=== PATIENT | female | born 1955 | race Two or more races ===

== ENCOUNTER → 2016-12-15 | Outpatient (CLI) | payer MEDICARE, MEDICAID | LOC: WI 09:00 | PROVIDERS: ATTEND Physician Assistant | DX: Z12.31 Encounter for screening mammogram for malignant neoplasm of breast (principal) | CPT/HCPCS: 77067; G0202 ==

== ENCOUNTER 2017-01-06 10:49 | Inpatient (IN) | payer MEDICARE, MEDICAID ==
[2017-01-06] MEDS ORDERED: MECLIZINE HCL 25 MG TABLET PO ONE (11:25)
[2017-01-06] MEDS ORDERED: NORMAL SALINE 1000 ML 1,000 ML IV ONE (11:39)
[2017-01-06 13:24] LABS: ABSOLUTE BASOPHILS # (AUTO) 0.1 10^3/uL (0.0-0.2); ABSOLUTE EOSINOPHILS # (AUTO) 0.1 10^3/uL (0.0-0.6); ABSOLUTE LYMPHOCYTES (AUTO) 1.6 10^3/uL (0.5-4.7); ABSOLUTE MONOCYTES (AUTO) 0.5 10^3/uL (0.1-1.4); ABSOLUTE NEUT (AUTO) 6.9 10^3/uL (1.7-8.2); BASOPHILS % (AUTO) 0.6 % (0-2); EOSINOPHILS % (AUTO) 1.3 % (0-6); HEMATOCRIT 39.2 % (36.0-47.0); HEMOGLOBIN 13.1 g/dL (12.0-15.5); HGB HCT DIFFERENCE 0.1; LYMPHOCYTES % (AUTO) 17.4 % (13-45); MEAN CORPUSCULAR HEMOGLOBIN 28.2 pg (27.0-33.4); MEAN CORPUSCULAR HGB CONC 33.5 g/dL (32.0-36.0); MEAN CORPUSCULAR VOLUME 84 fl (80-97); MONOCYTES % (AUTO) 5.5 % (3-13); RED BLOOD COUNT 4.66 10^6/uL (3.72-5.28); RED CELL DISTRIBUTION WIDTH 15.1 % (11.5-14.0); SEGMENTED NEUTROPHILS % (AUTO) 75.2 % (42-78); WHITE BLOOD COUNT 9.2 10^3/uL (4.0-10.5)
[2017-01-06 13:43] LABS: ALANINE AMINOTRANSFERASE 36 U/L (9-52); ALBUMIN 4.3 g/dL (3.5-5.0); ALKALINE PHOSPHATASE 106 U/L (38-126); ANION GAP 12 (5-19); ASPARTATE AMINO TRANSFERASE 31 U/L (14-36); BILIRUBIN,DIRECT 0.2 mg/dL (0.0-0.4); BILIRUBIN,TOTAL 0.5 mg/dL (0.2-1.3); BLOOD UREA NITROGEN 13 mg/dL (7-20); CALCIUM 9.7 mg/dL (8.4-10.2); CARBON DIOXIDE 27 mmol/L (22-30); CHLORIDE 104 mmol/L (98-107); CREATINE KINASE 77 U/L (30-135); CREATININE RESULT 0.59 mg/dL (0.52-1.25); GLUCOSE 108 mg/dL (75-110); LIPASE 80.8 U/L (23-300); MAGNESIUM 2.1 mg/dL (1.6-2.3); POTASSIUM 4.3 mmol/L (3.6-5.0); SODIUM 142.9 mmol/L (137-145); TOTAL PROTEIN 7.7 g/dL (6.3-8.2)
[2017-01-06 13:55] LABS: CREATINE KINASE MB 0.54 ng/mL (<4.55)
[2017-01-06 13:56] LABS: TROPONIN I < 0.012 ng/mL
--- NOTE | 2017-01-06 14:53 | ER Document Report ---
ED General - General Chief Complaint: Syncope Stated Complaint: DIZZINESS,HEADACHE TRAVEL OUTSIDE OF THE [place] IN LAST 30 DAYS: No - HPI Patient complains to provider of: dizziness syncope chest pain Notes: Patient states day prior to arrival started having lightheadedness and dizziness. Patient states also is having some left-sided chest pain pressure. Patient states symptoms continue until this morning when patient awoke and stood up and had a syncopal episode states she passed out for unknown period of time unwitnessed patient states he continues to have very severe lightheadedness and dizziness. Patient states this is now similar to any of the other episodes where she has been admitted to the ER here in the past. Denies any recent changes to her medication denies any head trauma suffered syncope today. Denies any recent travel or antibiotics. Upon my evaluation patient is in no obvious distress - Related Data Allergies/Adverse Reactions: azithromycin [Azithromycin] Adverse Reaction (Severe, Verified 08/17/16 12:09) dizzy, chest pain citalopram hydrobromide [From Celexa] Adverse Reaction (Intermediate, Verified 08/17/16 12:09) Nausea diazepam [From Valium] Adverse Reaction (Intermediate, Verified 08/17/16 12:09) Hyperactivity, anxious Home Medications: Current Home Medications Atorvastatin Calcium [Lipitor 40 mg Tablet] 40 mg PO DAILY 01/06/17 [History] Ipratropium/Albuterol Sulfate [Duoneb 3 ml Ampul] 3 ml NEB PRN PRN 01/06/17 [ History] Lisinopril [Prinivil] 20 mg PO DAILY 01/06/17 [History] Omeprazole 40 mg PO DAILY 01/06/17 [History] Past Medical History - Social History Smoking Status: Unknown if Ever Smoked Family History: Arthritis, Hyperlipidemia, Malignancy - Past Medical History Cardiac Medical History: Reports: Hx Coronary Artery Disease, Hx Hypercholesterolemia, Hx Hypertension Denies: Hx Heart Attack - SUPPOSE TO HAVE STRESS TEST SOMETIME SOON Pulmonary Medical History: Reports: Hx Asthma - at home inhalers and nebulizer, Hx Pneumonia Denies: Hx Bronchitis, Hx COPD, Hx Tuberculosis Neurological Medical History: Reports: Hx Cerebrovascular Accident - TIA in 2007. Denies: Hx Seizures GI Medical History: Reports: Hx Gastroesophageal Reflux Disease, Hx Colonoscopy , Hx Endoscopy. Denies: Hx Hepatitis, Hx Hiatal Hernia, Hx Ulcer Musculoskeltal Medical History: Reports Hx Arthritis, Reports Hx Fibromyalgia, Reports Hx Musculoskeletal Deformity, Reports Hx Musculoskeletal Trauma - Skull bone thumb Skin Medical History: Denies Hx MRSA Psychiatric Medical History: Reports: Hx Anxiety, Hx Depression, Hx Post Traumatic Stress Disorder Traumatic Medical History: Reports: Hx Fractures Infectious Medical History: Denies: Hx Hepatitis Past Surgical History: Reports: Hx Cardiac Catheterization, Hx Section - x4, Hx Cholecystectomy, Hx Hysterectomy, Hx Umbilical Hernia. Denies: Hx Mastectomy, Hx Open Heart Surgery, Hx Pacemaker - Immunizations Hx Diphtheria, Pertussis, Tetanus Vaccination: No Hx Pneumococcal Vaccination: 03/02/14 Review of Systems - Review of Systems Constitutional: No symptoms reported EENT: No symptoms reported Cardiovascular: Dizziness - Syncope, Other Respiratory: No symptoms reported Gastrointestinal: No symptoms reported Genitourinary: No symptoms reported Female Genitourinary: No symptoms reported Musculoskeletal: No symptoms reported Skin: No symptoms reported Hematologic/Lymphatic: No symptoms reported Neurological/Psychological: No symptoms reported -: Yes All other systems reviewed and negative Physical Exam - Vital signs Vitals: Pulse BP 69 128/62 H 01/06/17 13:22 01/06/17 13:22 Interpretation: Normal - General General appearance: Appears well, Alert - HEENT Head: Normocephalic, Atraumatic Eyes: Normal Pupils: PERRL - Respiratory Respiratory status: No respiratory distress Chest status: Nontender Breath sounds: Normal Chest palpation: Normal - Cardiovascular Rhythm: Regular Heart sounds: Normal auscultation Murmur: No - Abdominal Inspection: Normal, Obese Distension: No distension Bowel sounds: Normal Tenderness: Nontender Organomegaly: No organomegaly - Back Back: Normal, Nontender - Extremities General upper extremity: Normal inspection, Nontender, Normal color, Normal ROM , Normal temperature General lower extremity: Normal inspection, Nontender, Normal color, Normal ROM , Normal temperature, Normal weight bearing. No: Jay's sign - Neurological Neuro grossly intact: Yes Cognition: Normal Orientation: AAOx4 [place] Coma Scale Eye Opening: Spontaneous [place] Coma Scale Verbal: Oriented [place] Coma Scale Motor: Obeys Commands [place] Coma Scale Total: 15 Speech: Normal Motor strength normal: LUE, RUE, LLE, RLE Sensory: Normal - Psychological Associated symptoms: Normal affect, Normal mood - Skin Skin Temperature: Warm Skin Moisture: Dry Skin Color: Normal Course - Re-evaluation Re-evalutation: 01/06/17 16:07 Patient's lab work EKG x-rays CT of her head all return negative. Patient was unable to comply with orthostatics as that she stated when standing up she was to lightheaded and dizzy. Otherwise patient's examination reveals no critical etiology. The discussed the hospital is because of the patient's syncopal episode will admit the patient for further monitoring. - Vital Signs Vital signs: Temp Pulse Resp BP Pulse Ox 69 128/62 H 01/06/17 13:22 01/06/17 13:22 - Laboratory Result Diagrams: 01/06/17 13:10 01/06/17 13:10 Laboratory results interpreted by me: 01/06/17 13:10 RDW 15.1 H Discharge - Discharge Clinical Impression: Syncope Qualifiers: Syncope type: unspecified Qualified Code(s): R55 - Syncope and collapse Chest pain Qualifiers: Chest pain type: unspecified Qualified Code(s): R07.9 - Chest pain, unspecified Condition: Good Disposition: ADMITTED OBSERVATION Admitting Provider: [facility] Unit Admitted: Telemetry
[2017-01-06] MEDS ORDERED: ACETAMINOPHEN 325 MG TABLET PO PRN (15:13)
[2017-01-06] MEDS ORDERED: 1/2 NORMAL SALINE 1,000 ML IV PRN (15:13)
--- NOTE | 2017-01-06 16:55 | PDOC H&P ---
History of Present Illness Admission Date/PCP: 01/06/17 15:14 KAREN ALEXANDRE PA-C Patient complains of: Chest pressure and dizziness. History of Present Illness: AYAD SHAY is a 61 year old female with a background history of coronary artery disease, prior myocardial infarction, asthma, possible small stroke in 2007, GERD, and significant anxiety disorder. Yesterday she developed a chest pressure in the left upper part of her chest with possibly some radiation into her arm. It was intense and intermittent. It went away on its own. She did not do anything about it. However she became extremely anxious. She then developed a dizziness as if she might pass out. She went to bed and awoke this morning with an even more violent dizziness. She describes the room wildly spinning. However, she also states that this is a different dizziness from the type that she feels when she might pass out. She believes she passed out either in the bathroom or on the bed. It was not witnessed. She then presented for further evaluation. In the ED, her laboratory work, including troponin, has been unremarkable. Orthostatic blood pressures have been okay. A CT of the head was reported as negative. Now the patient tells me she still has a sense of chest pressure and points to the left upper part of her chest with a single finger. She also demonstrates that she gets a sharper chest pain when she takes a deep breath. She denies fever or chills but does admit to some nausea and diarrhea in the past 24 hours. She will be admitted to telemetry for further evaluation of her symptomatology and treatment as needed. Past Medical History Cardiac Medical History: Reports: Coronary Artery Disease, Hyperlipidema, Hypertension Denies: Myocardial Infarction - SUPPOSE TO HAVE STRESS TEST SOMETIME SOON Pulmonary Medical History: Reports: Asthma - at home inhalers and nebulizer, Pneumonia Denies: Bronchitis, Chronic Obstructive Pulmonary Disease (COPD), Tuberculosis Neurological Medical History: Denies: Seizures GI Medical History: Reports: Gastroesophageal Reflux Disease Denies: Hepatitis, Hiatal Hernia Musculoskeltal Medical History: Reports: Arthritis, Fibromyalgia Psychiatric Medical History: Reports: Depression, Post Traumatic Stress Disorder Hematology: Denies: Anemia, Sickle Cell Disease Past Surgical History Past Surgical History: Reports: Cardiac Catheterization, Section - x4, Cholecystectomy, Hysterectomy Denies: Amputation, Mastectomy, Pacemaker Social History Smoking Status: Unknown if Ever Smoked Frequency of Alcohol Use: None Hx Recreational Drug Use: No Hx Prescription Drug Abuse: No Family History Family History: Arthritis, Hyperlipidemia, Malignancy Parental Family History Reviewed: Yes Children Family History Reviewed: Yes Sibling(s) Family History Reviewed.: Yes Medication/Allergy Home Medications: Atorvastatin Calcium [Lipitor 40 mg Tablet] 40 mg PO DAILY 01/06/17 Ipratropium/Albuterol Sulfate [Duoneb 3 ml Ampul] 3 ml NEB PRN PRN 01/06/17 Lisinopril [Prinivil] 20 mg PO DAILY 01/06/17 Omeprazole 40 mg PO DAILY 01/06/17 Allergies/Adverse Reactions: azithromycin [Azithromycin] Adverse Reaction (Severe, Verified 08/17/16 12:09) dizzy, chest pain citalopram hydrobromide [From Celexa] Adverse Reaction (Intermediate, Verified 08/17/16 12:09) Nausea diazepam [From Valium] Adverse Reaction (Intermediate, Verified 08/17/16 12:09) Hyperactivity, anxious Review of Systems Constitutional: ABSENT: chills, fever(s), headache(s), weight gain, weight loss Eyes: ABSENT: visual disturbances Ears: ABSENT: hearing changes Cardiovascular: PRESENT: as per HPI Respiratory: ABSENT: cough, hemoptysis Gastrointestinal: ABSENT: abdominal pain, constipation, diarrhea, hematemesis, hematochezia, nausea, vomiting Genitourinary: ABSENT: dysuria, hematuria Musculoskeletal: ABSENT: joint swelling Integumentary: ABSENT: rash, wounds Neurological: ABSENT: abnormal gait, abnormal speech, confusion, dizziness, focal weakness, syncope Psychiatric: ABSENT: anxiety, depression, homidical ideation, suicidal ideation Endocrine: ABSENT: cold intolerance, heat intolerance, polydipsia, polyuria Hematologic/Lymphatic: ABSENT: easy bleeding, easy bruising Physical Exam Vital Signs: Temp Pulse Resp BP Pulse Ox 69 128/62 H 01/06/17 13:22 01/06/17 13:22 General appearance: PRESENT: no acute distress, well-developed, well-nourished Head exam: PRESENT: atraumatic, normocephalic Eye exam: PRESENT: conjunctiva pink, EOMI, PERRLA. ABSENT: scleral icterus Ear exam: PRESENT: normal external ear exam Mouth exam: PRESENT: moist, tongue midline Neck exam: ABSENT: carotid bruit, JVD, lymphadenopathy, thyromegaly Respiratory exam: PRESENT: clear to auscultation yvette. ABSENT: rales, rhonchi, wheezes Cardiovascular exam: PRESENT: RRR. ABSENT: diastolic murmur, rubs, systolic murmur Pulses: PRESENT: normal dorsalis pedis pul Vascular exam: PRESENT: normal capillary refill GI/Abdominal exam: PRESENT: normal bowel sounds, soft. ABSENT: distended, guarding, mass, organolmegaly, rebound, tenderness Rectal exam: PRESENT: deferred Extremities exam: PRESENT: full ROM. ABSENT: calf tenderness, clubbing, pedal edema Neurological exam: PRESENT: alert, awake, oriented to person, oriented to place , oriented to time, oriented to situation, CN II-XII grossly intact. ABSENT: motor sensory deficit Psychiatric exam: PRESENT: appropriate affect, normal mood. ABSENT: homicidal ideation, suicidal ideation Skin exam: PRESENT: dry, intact, warm. ABSENT: cyanosis, rash Results Impressions: Chest X-Ray 01/06/17 11:47 IMPRESSION: NO SIGNIFICANT RADIOGRAPHIC FINDING IN THE CHEST. Head CT 01/06/17 11:47 IMPRESSION: NORMAL BRAIN CT WITHOUT CONTRAST. Assessment & Plan - Diagnosis (1) Syncope Qualifiers: Syncope type: unspecified Qualified Code(s): R55 - Syncope and collapse Is this a current diagnosis for this admission?: YesPlan: Will monitor her symptoms, vital signs, labs, and telemetry. (2) Chest pain Qualifiers: Chest pain type: chest pain on breathing Qualified Code(s): R07.1 - Chest pain on breathing Is this a current diagnosis for this admission?: YesPlan: Will check serial cardiac enzymes and ask Cardiology to see. (3) CAD (coronary artery disease), [place] coronary artery Qualifiers: [place] vs. transplanted heart: [place] heart Is this a current diagnosis for this admission?: Yes (4) Anxiety Is this a current diagnosis for this admission?: Yes (5) Asthma Is this a current diagnosis for this admission?: No (6) GERD (gastroesophageal reflux disease) Is this a current diagnosis for this admission?: No (7) Obesity Is this a current diagnosis for this admission?: Yes (8) Hyperlipidemia Is this a current diagnosis for this admission?: No - Time Time Spent: 50 to 70 Minutes Medications reviewed and adjusted accordingly: Yes Anticipated discharge: Home
[2017-01-06] MEDS ORDERED: DIAZEPAM 5 MG TABLET PO PRN (19:01)
[2017-01-06 19:09] LABS: APPEARANCE,URINE CLEAR; BILIRUBIN,URINE NEGATIVE (NEGATIVE); GLUCOSE, URINE NEGATIVE (NEGATIVE); KETONES,URINE NEGATIVE (NEGATIVE); LEUKOCYTE ESTERASE,URINE TRACE (NEGATIVE); NITRITE,URINE NEGATIVE (NEGATIVE); PROTEIN,URINE NEGATIVE (NEGATIVE); UROBILINOGEN,URINE NEGATIVE mg/dL (<2.0)
[2017-01-06 19:26] LABS: URINE BARBITURATES SCREEN NEGATIVE; URINE METHADONE SCREEN NEGATIVE; URINE OPIATES LOW NEGATIVE; URINE PHENCYCLIDINE SCREEN NEGATIVE
--- NOTE | 2017-01-06 19:55 | PDOC CONSULTATION ---
Consultation Consult Date: 01/06/17 Attending physician:: SANDRA BAHENA Consult reason:: Syncope and near syncope and dizziness History of Present Illness Admission Date/PCP: 01/06/17 15:14 KAREN ALEXANDRE PA-C Patient complains of: Severe fatigue, dizziness, near syncope and syncope History of Present Illness: AYAD SHAY is a 61 year old female with a background history of coronary artery disease, prior myocardial infarction, asthma, possible small stroke in 2007, GERD, and significant anxiety disorder. Yesterday she developed a chest pressure in the left upper part of her chest with possibly some radiation into her arm. It was intense and intermittent. It went away on its own. She did not do anything about it. However she became extremely anxious. She then developed a dizziness as if she might pass out. She went to bed and awoke this morning with an even more violent dizziness. She describes the room wildly spinning. However, she also states that this is a different dizziness from the type that she feels when she might pass out. She believes she passed out either in the bathroom or on the bed. It was not witnessed. She then presented for further evaluation. In the ED, her laboratory work, including troponin, has been unremarkable. Orthostatic blood pressures have been okay. A CT of the head was reported as negative. Now the patient tells me she still has a sense of chest pressure and points to the left upper part of her chest with a single finger. She also demonstrates that she gets a sharper chest pain when she takes a deep breath. She denies fever or chills but does admit to some nausea and diarrhea in the past 24 hours. She will be admitted to telemetry for further evaluation of her symptomatology and treatment as needed. Past Medical History Cardiac Medical History: Reports: Coronary Artery Disease, Hyperlipidema, Hypertension Denies: Myocardial Infarction - SUPPOSE TO HAVE STRESS TEST SOMETIME SOON Pulmonary Medical History: Reports: Asthma - at home inhalers and nebulizer, Pneumonia Denies: Bronchitis, Chronic Obstructive Pulmonary Disease (COPD), Tuberculosis Neurological Medical History: Denies: Seizures GI Medical History: Reports: Gastroesophageal Reflux Disease Denies: Hepatitis, Hiatal Hernia Musculoskeltal Medical History: Reports: Arthritis, Fibromyalgia Psychiatric Medical History: Reports: Depression, Post Traumatic Stress Disorder Hematology: Denies: Anemia, Sickle Cell Disease Past Surgical History Past Surgical History: Reports: Cardiac Catheterization, Section - x4, Cholecystectomy, Hysterectomy Denies: Amputation, Mastectomy, Pacemaker Social History Information Source: Patient Smoking Status: Unknown if Ever Smoked Frequency of Alcohol Use: None Hx Recreational Drug Use: No Hx Prescription Drug Abuse: No - Advance Directive Resuscitation Status: Full Code Family History Family History: Arthritis, Hyperlipidemia, Malignancy Parental Family History Reviewed: Yes Children Family History Reviewed: Yes Sibling(s) Family History Reviewed.: Yes - Negative for premature coronary artery disease or sudden cardiac in the family amongst first degree relatives. Medication/Allergy Home Medications: Atorvastatin Calcium [Lipitor 40 mg Tablet] 40 mg PO DAILY 01/06/17 Ipratropium/Albuterol Sulfate [Duoneb 3 ml Ampul] 3 ml NEB PRN PRN 01/06/17 Lisinopril [Prinivil] 20 mg PO DAILY 01/06/17 Omeprazole 40 mg PO DAILY 01/06/17 Meclizine HCl [Antivert 25 mg Tablet] 25 mg PO Q8HP PRN #20 tablet 01/07/17 Metoprolol Succinate [Toprol Xl 25 mg Tab.sr] 25 mg PO DAILY #0 tab.sr.24h 01/07 Allergies/Adverse Reactions: azithromycin [Azithromycin] Adverse Reaction (Severe, Verified 08/17/16 12:09) dizzy, chest pain citalopram hydrobromide [From Celexa] Adverse Reaction (Intermediate, Verified 08/17/16 12:09) Nausea diazepam [From Valium] Adverse Reaction (Intermediate, Verified 08/17/16 12:09) Hyperactivity, anxious Review of Systems Review of Systems: Please see history of present illness and past medical history as wall. Constitutional: No fever or chills reported. Head : No recent chronic headaches, recent head injury. Eyes: No recent eye pain, diplopia, redness, discharge, acute visual changes. Ears: No recent chronic ear pain, acute hearing loss, ear discharge. Oral cavity: No recent ulcerations, bleeding, oral cavity discomfort. Neck: No recent acute neck pain reported. Hematologic: No recent easy bruising or bleeding or hematologic malignancy reported. Lymphatic: No recent lymphatic malignancy, chronic lymphadenopathy reported yet Cardiovascular system review: See history of present illness. Respiratory system review: No recent chronic cough, hemoptysis, blood clots in the lungs reported. Mild Shortness of breath on exertion Gastrointestinal system review: Negative for any recent acute or chronic abdominal pain, hematemesis, melena, recent change in bowel habits. Genitourinary system review: No recent acute or chronic hematuria, flank pain, UTI etc. reported. Skin system review: Negative for any recent abnormal bruising, no rash, no pruritus reported. Neurologic: Prior history of stroke but no seizure disorder. Patient claims dizziness and vertigo. Psychologic: No history of major psychosis or major depression reported. Patient has underlying anxiety disorder. Musculoskeletal: Minor aches and pains reported. No acute joint swelling reported. Endocrine: No recent polyuria, polydipsia, recent heat or cold intolerance. Physical Exam Vital Signs: Temp Pulse Resp BP Pulse Ox 98.0 F 76 18 126/59 H 100 01/06/17 17:44 01/06/17 17:44 01/06/17 17:44 01/06/17 17:44 01/06/17 17:44 Intake & Output 01/05/17 01/06/17 01/07/17 06:59 06:59 06:59 Intake Total 400 Balance 400 Weight 107.8 kg Exam: GENERAL: well-nourished and in no acute distress. Alert and oriented x3 HEAD: Atraumatic, normocephalic. EYES: Pupils equal round and reactive to light, extraocular movements intact, sclera anicteric, conjunctiva are normal. ENT: TMs normal, nares patent, oropharynx clear without exudates. Moist mucous membranes. No oral ulcerations or bleeding gums noted NECK: supple without lymphadenopathy. Trachea is central. No cervical or axillary lymphadenopathy noted. Carotids are 2+, JVD WNL LUNGS: Respiration seems nonlabored, no significant accessory muscle action noted. Breath sounds clear to auscultation bilaterally and equal noted. No wheezes rales or rhonchi noted. No significant dullness noted on percussion. CHEST: Palpation of the chest wall shows no significant chest wall tenderness. No other significant abnormalities noted. HEART: [employer], No PSH, 1/6 TAMICA aortic area, 1/6 ramirez systolic murmur mitral area, no rubs, no gallops. ABDOMEN: Soft, no significant tenderness appreciated, normoactive bowel sounds. No guarding, no rebound. No rigidity noted . No masses appreciated. EXTREMITIES: Pedal pulses are 1-2+, no calf tenderness noted. No clubbing or cyanosis.trace to 1+ pedal edema noted NEUROLOGICAL: Focused neurological exam showed no significant neurologic deficit. Normal speech, no focal weakness appreciated. PSYCH: Normal mood, normal affect. Judgment and insight within normal limits. SKIN: No significant ecchymosis, rash, ulcerations or signs of pruritus noted. MUSCULOSKELETAL EXAM: No significant joint swelling noted. Results Laboratory Results: 01/06/17 18:47 Urine Color YELLOW Urine Appearance CLEAR Urine pH 7.0 Ur Specific [place] 1.010 Urine Protein NEGATIVE Urine Glucose (UA) NEGATIVE Urine Ketones NEGATIVE Urine Blood NEGATIVE Urine Nitrite NEGATIVE Ur Leukocyte Esterase TRACE H Urine WBC (Auto) 2 Urine RBC (Auto) 0 EKG Comments: Sinus rhythm, no acute ST-T wave changes are noted. Impressions: Chest X-Ray 01/06/17 11:47 IMPRESSION: NO SIGNIFICANT RADIOGRAPHIC FINDING IN THE CHEST. Head CT 01/06/17 11:47 IMPRESSION: NORMAL BRAIN CT WITHOUT CONTRAST. Assessment & Plan - Diagnosis (1) Syncope Qualifiers: Syncope type: unspecified Qualified Code(s): R55 - Syncope and collapse Is this a current diagnosis for this admission?: YesPlan: Syncope: Patient describes history of syncope. There are multiple differential diagnosis. Possible vasovagal, possible cardiac dysrhythmia, vertebrobasilar insufficiency etc. At this point agree with cardiac monitoring. Patient may benefit from prolonged monitoring as an outpatient. (2) Chest pain Qualifiers: Chest pain type: chest pain on breathing Qualified Code(s): R07.1 - Chest pain on breathing Is this a current diagnosis for this admission?: Yes (3) Vertigo Is this a current diagnosis for this admission?: Yes (4) CAD (coronary artery disease), [place] coronary artery Qualifiers: [place] vs. transplanted heart: [place] heart Is this a current diagnosis for this admission?: Yes (5) Hyperlipidemia Is this a current diagnosis for this admission?: No (6) Obesity Is this a current diagnosis for this admission?: Yes (7) Sleep disorder breathing Is this a current diagnosis for this admission?: Yes (8) Hypertension Qualifiers: Hypertension type: essential hypertension Qualified Code(s): I10 - Essential (primary) hypertension Is this a current diagnosis for this admission?: Yes - Notes Notes: Chest pain: Patient describes a feeling of tightness in the chest. Patient describes that approximately 8 years ago her heart catheterization showed no blockages. Patient may have anxiety panic disorder, gastroesophageal reflux but has significant risk factors therefore will benefit from a stress test. This can be arranged as an outpatient. Syncope: Exact etiology not clear but likely to be vasovagal, cardiac dysrhythmia. Patient maintaining sinus rhythm. Patient could also have vertebrobasilar insufficiency. Discussed further evaluation with event monitor , mobile cardiac telemetry monitoring, 2-D echocardiogram, carotid duplex etc. Vertigo: Exact etiology not clear. To be evaluated further as an outpatient. Coronary artery disease: Patient tells me that she had no significant blockages on prior heart catheterization. Dyslipidemia: Consider statin therapy. Obesity: Patient has been encouraged to lose weight. Sleep disorder: Patient does give history of loud snoring. Discussed benefit from evaluation with a sleep study. Treatment of sleep apnea can often reduce incidence of vasovagal syncope. May reduce incidence of strokes. Hypertension: Blood pressure goal in this patient is 140/90 or less. This was discussed with the patient. Currently blood pressure under reasonable control. Better medication for this patient are BETO inhibitor/ARB/beta aneesh etc. discussed side effects of uncontrolled hypertension and also severe hypotension. - Time Time Spent: 30 to 50 Minutes - CODE STATUS was discussed, patient remains full code. Surrogate decision-maker patient's children. Multiple medical problems were addressed.More than 50% of the time spent coordinating care, discussing management plans with involved caregivers. Management plans discussed with involved personnels. Medical decision making was of moderate complexity.
[2017-01-06] MEDS ORDERED: METOPROLOL SUCCINATE 25 MG TAB.SR.24H PO ONE (20:00)
[2017-01-06] MEDS ORDERED: METOPROLOL SUCCINATE 25 MG TAB.SR.24H PO SCH (20:00)
--- NOTE | 2017-01-06 22:20 | EKG REPORT ---
SEVERITY:- NORMAL ECG - SINUS RHYTHM : Confirmed by: Mahad Tipton MD 06-Jan-2017 17:31:48
[2017-01-06] MEDS: FAMOTIDINE 20 MG TABLET PO SCH (23:06)
[2017-01-06] MEDS ORDERED: MECLIZINE HCL 12.5 MG TABLET PO PRN (23:41)
[2017-01-06 23:47] LABS: ADD ON TESTING BLD IN LAB ACKNOWLEDGE
[2017-01-07 00:11] LABS: ALCOHOL < 10 mg/dL (NONE DETECTED)
[2017-01-07 07:52] LABS: ABSOLUTE BASOPHILS # (AUTO) 0.1 10^3/uL (0.0-0.2); ABSOLUTE EOSINOPHILS # (AUTO) 0.4 10^3/uL (0.0-0.6); ABSOLUTE LYMPHOCYTES (AUTO) 2.3 10^3/uL (0.5-4.7); ABSOLUTE MONOCYTES (AUTO) 0.7 10^3/uL (0.1-1.4); ABSOLUTE NEUT (AUTO) 5.8 10^3/uL (1.7-8.2); BASOPHILS % (AUTO) 0.7 % (0-2); EOSINOPHILS % (AUTO) 3.8 % (0-6); HEMOGLOBIN 12.6 g/dL (12.0-15.5); HGB HCT DIFFERENCE -1.2; LYMPHOCYTES % (AUTO) 25.2 % (13-45); MEAN CORPUSCULAR HEMOGLOBIN 27.7 pg (27.0-33.4); MEAN CORPUSCULAR HGB CONC 32.4 g/dL (32.0-36.0); MEAN CORPUSCULAR VOLUME 86 fl (80-97); MONOCYTES % (AUTO) 7.9 % (3-13); RED BLOOD COUNT 4.56 10^6/uL (3.72-5.28); RED CELL DISTRIBUTION WIDTH 14.9 % (11.5-14.0); SEGMENTED NEUTROPHILS % (AUTO) 62.4 % (42-78); WHITE BLOOD COUNT 9.2 10^3/uL (4.0-10.5)
[2017-01-07] MEDS ORDERED: ENOXAPARIN SODIUM INJ 40 MG/0.4 ML DISP.SYRIN SUBCUT SCH (08:00)
[2017-01-07 08:09] LABS: ANION GAP 12 (5-19); BLOOD UREA NITROGEN 12 mg/dL (7-20); CALCIUM 9.7 mg/dL (8.4-10.2); CARBON DIOXIDE 27 mmol/L (22-30); CHLORIDE 105 mmol/L (98-107); CREATININE RESULT 0.64 mg/dL (0.52-1.25); GLUCOSE 107 mg/dL (75-110); SODIUM 143.8 mmol/L (137-145)
[2017-01-07] MEDS ORDERED: MECLIZINE HCL 25 MG TABLET PO PRN (10:49)
[2017-01-07] MEDS ORDERED: LISINOPRIL 10 MG TABLET PO SCH (11:00)
--- NOTE | 2017-01-07 11:27 | PDOC DISCHARGE SUMMARY ---
General - Admit/Disc Date/PCP Admission Date/Primary Care Provider: 01/06/17 15:14 KAREN ALEXANDRE PA-C Discharge Date: 01/07/17 - Discharge Diagnosis (1) Syncope Is this a current diagnosis for this admission?: YesSummary: The syncope was unwitnessed. She had no syncope during her emergency department to stay or the hospitalization. Her vital signs remained stable. CT brain negative. Laboratories all benign. The patient also complained of dizziness, described both as a lightheadedness and a wildly spinning vertigo. This did not respond to meclizine. This was much improved at the time of discharge. (2) Chest pain Is this a current diagnosis for this admission?: YesSummary: The chest pain was atypical. She has a more chronic chest wall pain in the left upper anterior chest and a more acute, sharper pain that was aggravated by taking a deep breath. (3) CAD (coronary artery disease), [place] coronary artery Is this a current diagnosis for this admission?: YesSummary: She has a history of coronary artery disease including myocardial infarction. Troponins were negative. She was seen by Dr. Benavides of cardiology who advises an outpatient cardiac stress test. (4) Anxiety Is this a current diagnosis for this admission?: YesSummary: The anxiety component may be significant. (5) Asthma Is this a current diagnosis for this admission?: NoSummary: She has a history of asthma but her respiratory status was stable during this hospitalization. (6) GERD (gastroesophageal reflux disease) Is this a current diagnosis for this admission?: NoSummary: She has a history of GERD, and she received Pepcid during the hospitalization. This was not particularly symptomatic. (7) Obesity Is this a current diagnosis for this admission?: YesSummary: Her obesity is severe at 5 feet 1 inch, 107 kg, for a BMI of 44.9. She was advised to lose weight. The possibility of obstructive sleep apnea was also discussed. (8) Hyperlipidemia Is this a current diagnosis for this admission?: NoSummary: She continues on her statin therapy for hyperlipidemia. - Additional Information Resuscitation Status: Full Code Discharge Diet: Cardiac Discharge Activity: Activity As Tolerated Home Medications: Atorvastatin Calcium [Lipitor 40 mg Tablet] 40 mg PO DAILY 01/06/17 Ipratropium/Albuterol Sulfate [Duoneb 3 ml Ampul] 3 ml NEB PRN PRN 01/06/17 Lisinopril [Prinivil] 20 mg PO DAILY 01/06/17 Omeprazole 40 mg PO DAILY 01/06/17 Meclizine HCl [Antivert 25 mg Tablet] 25 mg PO Q8HP PRN #20 tablet 01/07/17 Metoprolol Succinate [Toprol Xl 25 mg Tab.sr] 25 mg PO DAILY #0 tab.sr.24h 01/07 History of Present Illness Patient complains of: Syncope and chest pain. History of Present Illness: AYAD SHAY is a 61 year old female with a background history of coronary artery disease, prior myocardial infarction, asthma, possible small stroke in 2007, GERD, and significant anxiety disorder. Yesterday she developed a chest pressure in the left upper part of her chest with possibly some radiation into her arm. It was intense and intermittent. It went away on its own. She did not do anything about it. However she became extremely anxious. She then developed a dizziness as if she might pass out. She went to bed and awoke this morning with an even more violent dizziness. She describes the room wildly spinning. However, she also states that this is a different dizziness from the type that she feels when she might pass out. She believes she passed out either in the bathroom or on the bed. It was not witnessed. She then presented for further evaluation. In the ED, her laboratory work, including troponin, has been unremarkable. Orthostatic blood pressures have been okay. A CT of the head was reported as negative. Now the patient tells me she still has a sense of chest pressure and points to the left upper part of her chest with a single finger. She also demonstrates that she gets a sharper chest pain when she takes a deep breath. She denies fever or chills but does admit to some nausea and diarrhea in the past 24 hours. She will be admitted to telemetry for further evaluation of her symptomatology and treatment as needed. Hospital Course Hospital Course: The patient was admitted for further evaluation of her presenting symptoms of syncope and chest pain. This syncope episode itself was questionable. She described various forms of dizziness and various forms of chest pain. This was all colored by significant anxiety. In the hospital she had no further syncope. Her dizziness improved and patient denied response to meclizine. Her chest pain was minimal and continued to have a pleuritic pattern. Vital signs and laboratories remained stable. Serial troponins were negative. The patient was seen in consultation by Dr. Benavides of cardiology who advised an outpatient cardiac stress test. It is possible that the patient's symptoms of vertigo and pleuritic chest pain are part of a viral syndrome. Treatment is supportive and symptomatic. Physical Exam Vital Signs: Temp Pulse Resp BP Pulse Ox 98.7 F 70 17 118/56 L 98 01/07/17 08:05 01/07/17 08:05 01/07/17 08:05 01/07/17 08:05 01/07/17 08:05 Intake & Output 01/06/17 01/07/17 01/08/17 06:59 06:59 06:59 Intake Total 1921 Output Total 2100 Balance -179 Weight 107.6 kg Additional comments: General appearance: PRESENT: no acute distress, well-developed, well-nourished Head exam: PRESENT: atraumatic, normocephalic Eye exam: PRESENT: conjunctiva pink, EOMI, PERRLA. ABSENT: scleral icterus Ear exam: PRESENT: normal external ear exam Mouth exam: PRESENT: moist, tongue midline Neck exam: ABSENT: carotid bruit, JVD, lymphadenopathy, thyromegaly Respiratory exam: PRESENT: clear to auscultation yvette. ABSENT: rales, rhonchi, wheezes Cardiovascular exam: PRESENT: RRR. ABSENT: diastolic murmur, rubs, systolic murmur Pulses: PRESENT: normal dorsalis pedis pul Vascular exam: PRESENT: normal capillary refill GI/Abdominal exam: PRESENT: normal bowel sounds, soft. ABSENT: distended, guarding, mass, organolmegaly, rebound, tenderness Rectal exam: PRESENT: deferred Extremities exam: PRESENT: full ROM. ABSENT: calf tenderness, clubbing, pedal edema Neurological exam: PRESENT: alert, awake, oriented to person, oriented to place , oriented to time, oriented to situation, CN II-XII grossly intact. ABSENT: motor sensory deficit Psychiatric exam: PRESENT: appropriate affect, normal mood. ABSENT: homicidal ideation, suicidal ideation Skin exam: PRESENT: dry, intact, warm. ABSENT: cyanosis, rash Results Laboratory Results: 01/07/17 07:21 01/07/17 07:21 0301/07/17 01/07/17 18:47 07:21 07:21 WBC 9.2 RBC 4.56 Hgb 12.6 Hct 39.0 MCV 86 MCH 27.7 MCHC 32.4 RDW 14.9 H Plt Count 384 Seg Neutrophils % 62.4 Lymphocytes % 25.2 Monocytes % 7.9 Eosinophils % 3.8 Basophils % 0.7 Absolute Neutrophils 5.8 Absolute Lymphocytes 2.3 Absolute Monocytes 0.7 Absolute Eosinophils 0.4 Absolute Basophils 0.1 Sodium 143.8 Potassium 5.0 Chloride 105 Carbon Dioxide 27 Anion Gap 12 BUN 12 Creatinine 0.64 Est GFR ( Amer) > 60 Est GFR (Non-Af Amer) > 60 Glucose 107 Calcium 9.7 TSH Urine Color YELLOW Urine Appearance CLEAR Urine pH 7.0 Ur Specific [place] 1.010 Urine Protein NEGATIVE Urine Glucose (UA) NEGATIVE Urine Ketones NEGATIVE Urine Blood NEGATIVE Urine Nitrite NEGATIVE Ur Leukocyte Esterase TRACE H Urine WBC (Auto) 2 Urine RBC (Auto) 0 01/07/17 07:21 WBC RBC Hgb Hct MCV MCH MCHC RDW Plt Count Seg Neutrophils % Lymphocytes % Monocytes % Eosinophils % Basophils % Absolute Neutrophils Absolute Lymphocytes Absolute Monocytes Absolute Eosinophils Absolute Basophils Sodium Potassium Chloride Carbon Dioxide Anion Gap BUN Creatinine Est GFR ( Amer) Est GFR (Non-Af Amer) Glucose Calcium TSH 1.48 Urine Color Urine Appearance Urine pH Ur Specific [place] Urine Protein Urine Glucose (UA) Urine Ketones Urine Blood Urine Nitrite Ur Leukocyte Esterase Urine WBC (Auto) Urine RBC (Auto) 01/06/17 01/07/17 01/07/17 19:16 01:11 07:21 Troponin I < 0.012 < 0.012 < 0.012 Impressions: Chest X-Ray 01/06/17 11:47 IMPRESSION: NO SIGNIFICANT RADIOGRAPHIC FINDING IN THE CHEST. Head CT 01/06/17 11:47 IMPRESSION: NORMAL BRAIN CT WITHOUT CONTRAST. Qualifiers PATEINT BEING DISCHARGED WITH ANY OF THE FOLLOWING DIAGNOSIS?: No
[2017-01-07] MEDS: FAMOTIDINE 20 MG TABLET PO SCH (11:32)
[2017-01-07 11:35] VITALS: BP 108/58
--- NOTE | 2017-01-07 14:31 | PDOC PROGRESS REPORT ---
Subjective Progress Note for:: 01/07/17 Subjective:: Patient seems to be doing better. Patient still has intermittent dizziness and vertigo. Pt is denying any chest arm or neck discomfort. Patient denying any PND, orthopnea. Patient denied any sustained palpitations, dizziness, syncope, near syncope. Patient denying any fever chills. Patient denying any other significant discomfort. Patient is maintaining sinus rhythm. Review of systems: Rest review of systems negative. Cardiac enzymes have all come back negative. Medications: Medications have been reviewed. Physical Exam Vital Signs: Temp Pulse Resp BP Pulse Ox 98.5 F 67 16 108/58 L 97 01/07/17 12:12 01/07/17 12:12 01/07/17 12:12 01/07/17 12:12 01/07/17 12:12 Intake & Output 01/06/17 01/07/17 01/08/17 06:59 06:59 06:59 Intake Total 1921 615 Output Total 2100 Balance -179 615 Weight 107.6 kg Exam: GENERAL: well-nourished and in no acute distress. Alert and oriented x3 HEAD: Atraumatic, normocephalic. EYES: Pupils equal round and reactive to light, extraocular movements intact, sclera anicteric, conjunctiva are normal. ENT: TMs normal, nares patent, oropharynx clear without exudates. Moist mucous membranes. No oral ulcerations or bleeding gums noted NECK: supple without lymphadenopathy. Trachea is central. No cervical or axillary lymphadenopathy noted. Carotids are 2+, JVD WNL LUNGS: Respiration seems nonlabored, no significant accessory muscle action noted. Breath sounds clear to auscultation bilaterally and equal noted. No wheezes rales or rhonchi noted. No significant dullness noted on percussion. CHEST: Palpation of the chest wall shows no significant chest wall tenderness. No other significant abnormalities noted. HEART: [place] [employer], No PSH, 1/6 TAMICA aortic area, 1/6 ramirez systolic murmur mitral area, no rubs, no gallops. ABDOMEN: Soft, no significant tenderness appreciated, normoactive bowel sounds. No guarding, no rebound. No rigidity noted . No masses appreciated. EXTREMITIES: Pedal pulses are 1-2+, no calf tenderness noted. No clubbing or cyanosis.trace to 1+ pedal edema noted NEUROLOGICAL: Focused neurological exam showed no significant neurologic deficit. Normal speech, no focal weakness appreciated. PSYCH: Normal mood, normal affect. Judgment and insight within normal limits. SKIN: No significant ecchymosis, rash, ulcerations or signs of pruritus noted. MUSCULOSKELETAL EXAM: No significant joint swelling noted. Results Laboratory Results: 01/07/17 07:21 01/07/17 07:21 01/06/17 01/07/17 01/07/17 18:47 07:21 07:21 WBC 9.2 RBC 4.56 Hgb 12.6 Hct 39.0 MCV 86 MCH 27.7 MCHC 32.4 RDW 14.9 H Plt Count 384 Seg Neutrophils % 62.4 Lymphocytes % 25.2 Monocytes % 7.9 Eosinophils % 3.8 Basophils % 0.7 Absolute Neutrophils 5.8 Absolute Lymphocytes 2.3 Absolute Monocytes 0.7 Absolute Eosinophils 0.4 Absolute Basophils 0.1 Sodium 143.8 Potassium 5.0 Chloride 105 Carbon Dioxide 27 Anion Gap 12 BUN 12 Creatinine 0.64 Est GFR ( Amer) > 60 Est GFR (Non-Af Amer) > 60 Glucose 107 Calcium 9.7 TSH Urine Color YELLOW Urine Appearance CLEAR Urine pH 7.0 Ur Specific [place] 1.010 Urine Protein NEGATIVE Urine Glucose (UA) NEGATIVE Urine Ketones NEGATIVE Urine Blood NEGATIVE Urine Nitrite NEGATIVE Ur Leukocyte Esterase TRACE H Urine WBC (Auto) 2 Urine RBC (Auto) 0 01/07/17 07:21 WBC RBC Hgb Hct MCV MCH MCHC RDW Plt Count Seg Neutrophils % Lymphocytes % Monocytes % Eosinophils % Basophils % Absolute Neutrophils Absolute Lymphocytes Absolute Monocytes Absolute Eosinophils Absolute Basophils Sodium Potassium Chloride Carbon Dioxide Anion Gap BUN Creatinine Est GFR ( Amer) Est GFR (Non-Af Amer) Glucose Calcium TSH 1.48 Urine Color Urine Appearance Urine pH Ur Specific [place] Urine Protein Urine Glucose (UA) Urine Ketones Urine Blood Urine Nitrite Ur Leukocyte Esterase Urine WBC (Auto) Urine RBC (Auto) 01/06/17 01/07/17 01/07/17 19:16 01:11 07:21 Troponin I < 0.012 < 0.012 < 0.012 Impressions: Chest X-Ray 01/06/17 11:47 IMPRESSION: NO SIGNIFICANT RADIOGRAPHIC FINDING IN THE CHEST. Head CT 01/06/17 11:47 IMPRESSION: NORMAL BRAIN CT WITHOUT CONTRAST. Assessment & Plan - Diagnosis (1) Syncope Qualifiers: Syncope type: unspecified Qualified Code(s): R55 - Syncope and collapse Is this a current diagnosis for this admission?: Yes (2) Chest pain Qualifiers: Chest pain type: chest pain on breathing Qualified Code(s): R07.1 - Chest pain on breathing Is this a current diagnosis for this admission?: Yes (3) Vertigo Is this a current diagnosis for this admission?: Yes (4) CAD (coronary artery disease), [place] coronary artery Qualifiers: [place] vs. transplanted heart: [place] heart Is this a current diagnosis for this admission?: Yes (5) Hyperlipidemia Is this a current diagnosis for this admission?: No (6) Obesity Is this a current diagnosis for this admission?: Yes - Notes Notes: Syncope and near syncope: Etiology not clear but most likely vasovagal, possible cardiac dysrhythmia. Patient has been advised to have a event monitor placed. Patient will also benefit from further evaluation with a 2-D echocardiogram, carotid duplex, tilt table study etc. Patient medication may need to be readjusted. Chest pain: Patient does give history of CAD. To be evaluated further with a nuclear stress test which will be arranged as an outpatient. Patient cannot walk on a treadmill. Vertigo: Need to consider vertebrobasilar insufficiency versus inner ear problem. We'll obtain carotid duplex, ENT consultation. Coronary artery disease: To be evaluated further with a 2-D echocardiogram and nuclear stress test. Patient advised risk factor modification. Obesity: Patient encouraged to lose weight. Hypertension: Patient currently on lisinopril. Will consider switch to ARB or beta aneesh. Hyperlipidemia: LDL goal is less than 70. Recommend statin therapy at least intermediate or high dose, of high potency status. Periodic lipid panel and liver panel is indicated. Patient to report any significant muscle discomfort or other side effects. Sleep disorder breathing: Based on patient's symptoms, oropharyngeal exam, body habitus, comorbid diagnosis etc., there is high probability of underlying sleep apnea syndrome. Evaluation is recommended for sleep apnea as treatment of this condition if found is likely to benefit patient and reduce patient's future cardiovascular risk. Patient encouraged to follow-up with primary care physician and chief executive of her choice. Patient given my card. - Time Time with patient: Greater than 35 minutes - CODE STATUS was discussed, patient remains full code. Surrogate decision-maker patient's children. Multiple medical problems were addressed.More than 50% of the time spent coordinating care, discussing management plans with involved caregivers. Management plans discussed with involved personnels. Medical decision making was of moderate complexity. Medications reviewed and adjusted accordingly: Yes
[2017-01-08] MEDS ORDERED: (PENDING PHARMACY ID) (Lisinopril [Prinivil] 20 MG) PO SCH (10:00)
[2017-01-08] MEDS ORDERED: LANSOPRAZOLE 30 MG TAB.RAP.DR PO SCH (10:00)
[2017-01-08] MEDS ORDERED: ATORVASTATIN CALCIUM 40 MG TABLET PO SCH (10:00)
== END 2017-01-07 13:20 | disposition home or self-care (01) | DRG 312 ==
LOC: ER 10:49 → EH 15:12 → OBSVTOIN 15:14 → 4S 17:42
DX: R55 Syncope and collapse (principal); Z68.41 Body mass index [BMI] 40.0-44.9, adult; R07.1 Chest pain on breathing; R42 Dizziness and giddiness; I25.10 Atherosclerotic heart disease of native coronary artery without angina pectoris; E78.5 Hyperlipidemia, unspecified; I10 Essential (primary) hypertension; K21.9 Gastro-esophageal reflux disease without esophagitis; J45.909 Unspecified asthma, uncomplicated; F41.9 Anxiety disorder, unspecified; E66.9 Obesity, unspecified; M79.7 Fibromyalgia; Z86.73 Personal history of transient ischemic attack (TIA), and cerebral infarction without residual deficits
CPT/HCPCS: 36415; 70450; 71020; 80048; 80053; 80307; 81001; 82550; 82553; 83605; 83690; 83735; 84443; 84484; 85025; 93005; 93010; 96360; 99285; J3490; J7030

== ENCOUNTER → 2017-12-27 | Outpatient (CLI) | payer MEDICARE, MEDICAID ==
--- NOTE | 2017-12-27 13:41 | WOMENS IMAGING REPORT ---
EXAM DESCRIPTION: 3D SCREENING MAMMO BILAT COMPLETED DATE/TIME: 12/27/2017 1:02 pm REASON FOR STUDY: SCREENING MAMMO Z12.31 ENCNTR SCREEN MAMMOGRAM FOR MALIGNANT NEOPLASM OF [place] COMPARISON: 12/15/2016 and 12/10/2015. TECHNIQUE: Standard craniocaudal and mediolateral oblique views of each breast recorded using digita l acquisition and breast tomosynthesis. LIMITATIONS: None. FINDINGS: No masses, calcifications or architectural distortion. No areas of suspicion. Read with the assistance of CAD. .[facility] - R2 Cenova Version 1.3 .[facility] Imaging - R2 Cenova Version 1.3 .[facility] Imaging - R2 Cenova Version 2.4 .[facility] - R2 Cenova Version 2.4 .[facility] - R2 Roofing Tile Sorter Version 9.2 IMPRESSION: NORMAL MAMMOGRAM. BIRADS 1. BREAST DENSITY: a. The breasts are almost entirely fatty. BIRAD: 1 NEGATIVE RECOMMENDATION: ROUTINE SCREENING COMMENT: The patient has been notified of the results by letter per SA requirements. Additional no tification policies are in place for contacting patient with suspicious or incomplete findings. Quality ID #[id number]: The [employer] recommends an annual screening mammogram for women aged 40 years or over. This facility utilizes a reminder system to ensure that all patients receive reminder letters, and/or direct phone calls for appointments. This includes reminders for routine scr eening mammograms, diagnostic mammograms, or other Breast Imaging Interventions when appropriate. Th is patient will be placed in the appropriate reminder system. The [employer] (ACR) has developed recommendations for screening MRI of the breast s in certain patient populations, to be used in conjunction with mammography. Breast MRI surveillanc e may be appropriate for women with more than 20% lifetime risk of developing breast cancer as deter mined by genetic testing, significant family history of the disease, or history of mantle radiation f or Hodgkins Disease. ACR Practice Guidelines 2008. DBT Technology DBT is a type of tomographic mammography. With conventional mammography, overlapping breast tissue ma y make lesions difficult to detect, even with good compression. DBT uses an x-ray tube that rotates a round the breast, taking images at different angles. These images are then combined to create thin sl ices of the breast that the radiologist can view as a 3D reconstruction. The Blogv[employer] unit can perform full-field digital mammograms (2D imaging); or DBT (3D imaging); or both, in a combination mode that quickly performs both the mammogram and the tomosynthesis scan while the breast is still compressed. PQRS 6045F: Fluoroscopic imaging is not utilized for breast tomosynthesis. TECHNICAL DOCUMENTATION: FINDING NUMBER: (1) ASSESSMENT: (1) JOB ID: [id number] 80/20 [employer]- All Rights Reserved Reading location - IP/workstation name: [email or web address]
== END ==
LOC: WI 08:30
PROVIDERS: ATTEND Physician Assistant
DX: Z12.31 Encounter for screening mammogram for malignant neoplasm of breast (principal)
CPT/HCPCS: 77063; 77067

== ENCOUNTER 2018-02-10 22:04 | Emergency (ER) | payer MEDICARE, MEDICAID ==
[2018-02-10] MEDS ORDERED: HYDROMORPHONE HCL INJ/PF 2 MG/ML AMPULE IM ONE (23:54)
--- NOTE | 2018-02-10 23:57 | ER Document Report ---
ED General - General Chief Complaint: Leg Pain Stated Complaint: LEFT LOWER LEG PAIN Time Seen by Provider: 02/10/18 23:38 Notes: Patient is a 62-year-old female presents with complaint of left knee pain. She said she said the knee pain for a few months. She said today when she was in her garden she stood up straight and felt a sudden severe pain in her left knee. She says it has been severe since then. She says the pain is behind her left knee. She says it radiates down into the left upper calf. No history of venous Doppler to look for ultrasound. She did usually takes Naprosyn for her pain but says the Naprosyn has not been helping today. She denies any fevers or infections. No history of surgeries on the knee. No other complaints at this time. TRAVEL OUTSIDE OF THE [place] IN LAST 30 DAYS: No - Related Data Allergies/Adverse Reactions: azithromycin [Azithromycin] Adverse Reaction (Severe, Verified 08/17/16 12:09) dizzy, chest pain citalopram hydrobromide [From Celexa] Adverse Reaction (Intermediate, Verified 08/17/16 12:09) Nausea diazepam [From Valium] Adverse Reaction (Intermediate, Verified 08/17/16 12:09) Hyperactivity, anxious Past Medical History - Social History Smoking Status: Never Smoker Chew tobacco use (# tins/day): No Frequency of alcohol use: None Drug Abuse: None Family History: Arthritis, Hyperlipidemia, Malignancy Patient has suicidal ideation: No Patient has homicidal ideation: No - Past Medical History Cardiac Medical History: Reports: Hx Coronary Artery Disease, Hx Hypercholesterolemia, Hx Hypertension Denies: Hx Heart Attack - SUPPOSE TO HAVE STRESS TEST SOMETIME SOON Pulmonary Medical History: Reports: Hx Asthma - at home inhalers and nebulizer, Hx Pneumonia Denies: Hx Bronchitis, Hx COPD, Hx Tuberculosis Neurological Medical History: Reports: Hx Cerebrovascular Accident - TIA in 2007. Denies: Hx Seizures Renal/ Medical History: Denies: Hx Peritoneal Dialysis GI Medical History: Reports: Hx Gastroesophageal Reflux Disease, Hx Colonoscopy , Hx Endoscopy. Denies: Hx Hepatitis, Hx Hiatal Hernia, Hx Ulcer Musculoskeltal Medical History: Reports Hx Arthritis, Reports Hx Fibromyalgia, Reports Hx Musculoskeletal Deformity, Reports Hx Musculoskeletal Trauma - Skull bone thumb Skin Medical History: Denies Hx MRSA Psychiatric Medical History: Reports: Hx Anxiety, Hx Depression, Hx Post Traumatic Stress Disorder Traumatic Medical History: Reports: Hx Fractures Infectious Medical History: Denies: Hx Hepatitis Past Surgical History: Reports: Hx Cardiac Catheterization, Hx Section - x4, Hx Cholecystectomy, Hx Hysterectomy, Hx Umbilical Hernia. Denies: Hx Mastectomy, Hx Open Heart Surgery, Hx Pacemaker - Immunizations Hx Diphtheria, Pertussis, Tetanus Vaccination: No Hx Pneumococcal Vaccination: 03/02/14 Review of Systems - Review of Systems Notes: My Normal Review Basic REVIEW OF SYSTEMS: CONSTITUTIONAL : Denies fever, chills, or sweats. Denies recent illness. CARDIOVASCULAR: Denies chest pain. RESPIRATORY: Denies cough, cold, or chest congestion. Denies shortness of breath, difficulty breathing, or wheezing. MUSCULOSKELETAL: Left knee pain SKIN: Denies rash or skin lesions. NEUROLOGICAL: Denies altered mental status or loss of consciousness. Denies headache. Denies weakness or paralysis or loss of use of either side. Denies problems with gait or speech. Denies sensory or motor loss. ALL OTHER SYSTEMS REVIEWED AND NEGATIVE. Physical Exam - Vital signs Vitals: Temp Pulse Resp BP Pulse Ox 98.5 F 86 20 123/64 97 02/10/18 22:22 02/10/18 22:22 02/10/18 22:22 02/10/18 22:22 02/10/18 22:22 - Notes Notes: General Appearance: Well nourished, alert, cooperative, no acute distress, moderate obvious discomfort. Vitals: reviewed, See vital signs table. Eyes: PERRL, EOMI, Conjuctiva clear Extremities: strength 5/5 in all extremities, good pulses in all extremities, patient has significant pain to palpation over the posterior aspect of the left knee that extends down just inferior to the itself into the upper calf. No significant swelling of the leg. No redness. No increased warmth. Patient does have pain with flexion of the knee. I did perform bedside ultrasound look for evidence of DVT. Femoral vein is fully compressible. Popliteal vein is compressible. Good augmentation of flow with calf squeeze. Good distal pulses and good capillary refill. Skin: warm, dry, appropriate color, no rash Neuro: speech clear, oriented x 3, normal affect, responds appropriately to questions. Distal sensation intact. Course - Re-evaluation Re-evalutation: 02/11/18 01:12 Patient feels some improvement after receiving the pain medicine. I did do a bedside ultrasound did not see evidence of DVT. I think DVT is much less likely being that the pain suddenly got worse today upon standing; however, the patient's pain is all in the posterior knee. I did write a prescription to have an outpatient official DVT ultrasound performed. Informed I suspect most likely her pain is related to the meniscus tear or possibly crucial ligament tear. I will give her crutches and encouraged her to wear a knee brace that she artery has at home. I give her referral to Dr. Mackenzie and she said she will call him to make a follow-up appointment. Patient encouraged to return to ER if she has worsening pain or feels unwell. Patient agrees with plan will be discharged home. Dictation of this chart was performed using voice recognition software; therefore, there may be some unintended grammatical errors. - Vital Signs Vital signs: Temp Pulse Resp BP Pulse Ox 98.5 F 86 20 123/64 97 02/10/18 22:22 02/10/18 22:22 02/10/18 22:22 02/10/18 22:22 02/10/18 22:22 Discharge - Discharge Clinical Impression: Knee pain, left Qualifiers: Chronicity: acute Qualified Code(s): M25.562 - Pain in left knee Condition: Good Disposition: HOME, SELF-CARE Instructions: Oral Narcotic Medication ([facility]) Additional Instructions: Please return to the ER immediately if you develop intractable pain, difficulty breathing, fevers, or feel unwell. Please use the crutches so that you are not weight bearing on your left leg. Please follow up with Dr. Mackenzie, orthopedist, for reevaluation and further workup of your knee pain. Please call the number on the prescription for the ultrasound to set up a time to feliz get the ultrasound performed. Please continue to take Naprosyn for pain. Take the Ultram for break though pain. Do not drive after taking the Ultram as it may make you sleepy. Prescriptions: Tramadol HCl [Ultram 50 mg Tablet] 50 mg PO Q6HP PRN #15 tablet PRN Reason: Forms: Follow-Up Outpatient Testing Referrals: LUIGI MACKENZIE MD [ACTIVE STAFF] - Follow up in 3-5 days
--- NOTE | 2018-02-11 00:24 | RADIOLOGY REPORT (SQ) ---
EXAM DESCRIPTION: KNEE LEFT 4 VIEW CLINICAL HISTORY: 62 years Female, knee pain COMPARISON: None. Findings: Small quadriceps enthesophyte. Bones, joints, and soft tissues of the KNEE LEFT 4 VIEW appear otherwise intact. IMPRESSION: No acute findings.
[2018-02-11 01:25] VITALS: BP 122/58
== END 2018-02-11 01:26 | disposition home or self-care (01) ==
LOC: ER 22:04
DX: M25.562 Pain in left knee (principal); M79.605 Pain in left leg; X58.XXXA Exposure to other specified factors, initial encounter; Z79.899 Other long term (current) drug therapy; I25.10 Atherosclerotic heart disease of native coronary artery without angina pectoris; I10 Essential (primary) hypertension; J45.909 Unspecified asthma, uncomplicated
CPT/HCPCS: 99283; 96372; 73562; J1170

== ENCOUNTER → 2018-02-12 | Outpatient (CLI) | payer MEDICARE, MEDICAID ==
--- NOTE | 2018-02-12 12:47 | RADIOLOGY REPORT (SQ) ---
EXAM DESCRIPTION: VENOUS UNILATERAL LOWER COMPLETED DATE/TIME: 02/12/2018 10:36 am REASON FOR STUDY: LLE PAIN M79.605 PAIN IN LEFT LEG COMPARISON: None. TECHNIQUE: Dynamic and static ball scale and color images acquired of the left leg venous system. Se lected spectral images acquired with additional compression and augmentation maneuvers. The contralat eral common femoral vein and saphenofemoral junction were also imaged. Images stored on PACS. LIMITATIONS: None. FINDINGS: COMMON FEMORAL: Normal phasicity, compression and augmentation. No visualized echogenic ma terial on ball scale. No defects on color images. FEMORAL: Normal compression and augmentation. No visualized echogenic material on ball scale. No defe cts on color images. POPLITEAL: Normal compression, augmentation. No visualized echogenic material on ball scale. No defec ts on color images. CALF VESSELS: Normal compression, augmentation. No visualized echogenic material on ball scale. No de fects on color images. GSV and SSV: Normal compression, augmentation. No visualized echogenic material on ball scale. No def ects on color images. ANY DEEP VENOUS INSUFFICIENCY: Not evaluated. ANY EVIDENCE OF POPLITEAL CYST: No. OTHER: No other significant finding. CONTRALATERAL COMMON FEMORAL VEIN AND SAPHENOFEMORAL JUNCTION: Normal phasicity, compression and augmentation. No visualized echogenic material on ball scale. No de fects on color images. IMPRESSION: NO EVIDENCE DVT OR SVT IN THE LEFT LEG. TECHNICAL DOCUMENTATION: JOB ID: [id number] [employer]- All Rights Reserved Reading location - IP/workstation name: [email or web address]
== END ==
LOC: SP 08:48
PROVIDERS: ATTEND Emergency Medicine
DX: M79.605 Pain in left leg (principal)
CPT/HCPCS: 93971

== ENCOUNTER 2018-12-26 12:52 | Emergency (ER) | payer MEDICARE, MEDICAID ==
--- NOTE | 2018-12-26 15:01 | ER Document Report ---
ED Medical Screen (RME) - General Chief Complaint: Chest Pain Stated Complaint: CHEST PRESSURE Time Seen by Provider: 12/26/18 14:47 Primary Care Provider: KAREN ALEXANDRE PA-C [Primary Care Provider] - Follow up as needed TRAVEL OUTSIDE OF THE [place] IN LAST 30 DAYS: No - HPI Notes: 12/26/18 14:58 63-year-old female presents to the ED with complaints of having chest posterior early this a.m., states she got up from bed she felt dizzy, felt like she is going to have a near syncopal event. Patient states she felt nauseous yesterday, has not felt nauseous today Patient reports she does have a history of vertigo, is taking a "medication for it but it is not working". Denies any recent trauma. No numbness or tingling down arms or legs. Reports chest pain is under her bilateral breasts, denies any radiation of pain. I have greeted and performed a rapid initial assessment of this patient. A comprehensive ED assessment and evaluation of the patient, analysis of test r esults and completion of medical decision making process will be conducted by an additional ED providers. - Related Data Allergies/Adverse Reactions: azithromycin [Azithromycin] Adverse Reaction (Severe, Verified 08/17/16 12:09) dizzy, chest pain citalopram hydrobromide [From Celexa] Adverse Reaction (Intermediate, Verified 08/17/16 12:09) Nausea diazepam [From Valium] Adverse Reaction (Intermediate, Verified 08/17/16 12:09) Hyperactivity, anxious Past Medical History - Social History Chew tobacco use (# tins/day): No Frequency of alcohol use: None Drug Abuse: None - Past Medical History Cardiac Medical History: Reports: Hx Coronary Artery Disease, Hx Hypercholesterolemia, Hx Hypertension Denies: Hx Heart Attack - SUPPOSE TO HAVE STRESS TEST SOMETIME SOON Pulmonary Medical History: Reports: Hx Asthma - at home inhalers and nebulizer, Hx Pneumonia Denies: Hx Bronchitis, Hx COPD, Hx Tuberculosis Neurological Medical History: Reports: Hx Cerebrovascular Accident - TIA in 2007. Denies: Hx Seizures Renal/ Medical History: Denies: Hx Peritoneal Dialysis GI Medical History: Reports: Hx Gastroesophageal Reflux Disease, Hx Colonoscopy, Hx Endoscopy. Denies: Hx Hepatitis, Hx Hiatal Hernia, Hx Ulcer Musculoskeltal Medical History: Reports Hx Arthritis, Reports Hx Fibromyalgia, Reports Hx Musculoskeletal Deformity, Reports Hx Musculoskeletal Trauma - Skull bone thumb Skin Medical History: Denies Hx MRSA Psychiatric Medical History: Reports: Hx Anxiety, Hx Depression, Hx Post Traumatic Stress Disorder Traumatic Medical History: Reports: Hx Fractures Infectious Medical History: Denies: Hx Hepatitis Past Surgical History: Reports: Hx Cardiac Catheterization, Hx Section - x4, Hx Cholecystectomy, Hx Hysterectomy, Hx Umbilical Hernia. Denies: Hx Mastectomy, Hx Open Heart Surgery, Hx Pacemaker - Immunizations Hx Diphtheria, Pertussis, Tetanus Vaccination: No Physical Exam - Vital signs Vitals: Temp Pulse Resp BP Pulse Ox 98.7 F 82 20 148/70 H 96 12/26/18 13:16 12/26/18 13:16 12/26/18 13:16 12/26/18 13:16 12/26/18 13:16 Course - Vital Signs Vital signs: Temp Pulse Resp BP Pulse Ox 98.7 F 82 20 148/70 H 96 12/26/18 13:16 12/26/18 13:16 12/26/18 13:16 12/26/18 13:16 12/26/18 13:16 Doctor's Discharge - Discharge Referrals: KAREN ALEXANDRE PA-C [Primary Care Provider] - Follow up as needed
--- NOTE | 2018-12-26 15:31 | RADIOLOGY REPORT (SQ) ---
EXAM DESCRIPTION: CHEST 2 VIEWS COMPLETED DATE/TIME: 12/26/2018 3:22 pm REASON FOR STUDY: cp with dizziness, near syncopal event COMPARISON: 01/06/2017 EXAM PARAMETERS: NUMBER OF VIEWS: two views TECHNIQUE: Digital Frontal and Lateral radiographic views of the chest acquired. RADIATION DOSE: NA LIMITATIONS: none FINDINGS: LUNGS AND PLEURA: No opacities, masses or pneumothorax. No pleural effusion. MEDIASTINUM AND HILAR STRUCTURES: No masses or contour abnormalities. HEART AND VASCULAR STRUCTURES: Heart normal size. No evidence for failure. BONES: No acute findings. HARDWARE: None in the chest. OTHER: No other significant finding. IMPRESSION: NO ACUTE RADIOGRAPHIC FINDING IN THE CHEST. TECHNICAL DOCUMENTATION: JOB ID: [id number] [employer]- All Rights Reserved Reading location - IP/workstation name: [email or web address]
[2018-12-26 15:49] LABS: ABSOLUTE BASOPHILS # (AUTO) 0.1 10^3/uL (0.0-0.2); ABSOLUTE EOSINOPHILS # (AUTO) 0.5 10^3/uL (0.0-0.6); ABSOLUTE LYMPHOCYTES (AUTO) 2.1 10^3/uL (0.5-4.7); ABSOLUTE MONOCYTES (AUTO) 0.7 10^3/uL (0.1-1.4); ABSOLUTE NEUT (AUTO) 5.9 10^3/uL (1.7-8.2); BASOPHILS % (AUTO) 0.8 % (0-2); EOSINOPHILS % (AUTO) 5.1 % (0-6); HEMATOCRIT 40.4 % (36.0-47.0); HEMOGLOBIN 13.5 g/dL (12.0-15.5); LYMPHOCYTES % (AUTO) 22.7 % (13-45); MEAN CORPUSCULAR HEMOGLOBIN 28.7 pg (27.0-33.4); MEAN CORPUSCULAR HGB CONC 33.5 g/dL (32.0-36.0); MEAN CORPUSCULAR VOLUME 86 fl (80-97); MONOCYTES % (AUTO) 7.9 % (3-13); PLATELET COUNT 442 10^3/uL (150-450); RED BLOOD COUNT 4.72 10^6/uL (3.72-5.28); RED CELL DISTRIBUTION WIDTH 15.5 % (11.5-14.0); SEGMENTED NEUTROPHILS % (AUTO) 63.5 % (42-78); TOTAL CELLS COUNTED % (AUTO) 100 %; WHITE BLOOD COUNT 9.4 10^3/uL (4.0-10.5)
[2018-12-26 16:09] LABS: ALANINE AMINOTRANSFERASE 31 U/L (9-52); ALBUMIN 4.8 g/dL (3.5-5.0); ALKALINE PHOSPHATASE 113 U/L (38-126); ANION GAP 11 (5-19); ASPARTATE AMINO TRANSFERASE 34 U/L (14-36); BILIRUBIN,DIRECT 0.2 mg/dL (0.0-0.4); BILIRUBIN,TOTAL 0.4 mg/dL (0.2-1.3); BLOOD UREA NITROGEN 15 mg/dL (7-20); CALCIUM 10.4 mg/dL (8.4-10.2); CARBON DIOXIDE 28 mmol/L (22-30); CHLORIDE 99 mmol/L (98-107); CREATINE KINASE 58 U/L (30-135); GLUCOSE 95 mg/dL (75-110); POTASSIUM 4.8 mmol/L (3.6-5.0); SODIUM 138.2 mmol/L (137-145); TOTAL PROTEIN 7.8 g/dL (6.3-8.2)
[2018-12-26 16:19] LABS: CREATINE KINASE MB 0.46 ng/mL (<4.55)
[2018-12-26 16:20] LABS: TROPONIN I < 0.012 ng/mL
[2018-12-26] MEDS ORDERED: ASPIRIN 81 MG TABLET, CHEWABLE PO ONE (16:52)
[2018-12-26] MEDS ORDERED: ASPIRIN 81 MG TABLET, CHEWABLE ONE (16:57)
--- NOTE | 2018-12-26 17:37 | ER Document Report ---
ED General - General Chief Complaint: Chest Pain Stated Complaint: CHEST PRESSURE Time Seen by Provider: 12/26/18 14:47 Primary Care Provider: KAREN ALEXANDRE PA-C [Primary Care Provider] - Follow up tomorrow Notes: Patient is a 63-year-old female with history of hypertension that presents to the emergency department for chief complaint of syncopal episode and chest pain. Patient states she is been dealing with vertigo symptoms most recently, and today she got up from lying down and then went to stand up, and then had a brief syncopal episode, she did feel lightheaded just before this happened, denies vomiting, denies loss of bowel or bladder function. Did not bite her tongue. She states that she has had some associated chest pain since then, on the right side, but is now gone she described it as a pressure. At this time she is feeling better, she does feel slightly lightheaded, she does take medication for blood pressure, lisinopril only. She denies history of CAD or PE or DVTs in the past. Denies any leg swelling. She states she is been taking meclizine to try to help with her vertigo she is been having over the last several months. She also mentions she has some pain in the left side of her neck, that started about 2 weeks ago, and has been bothering her today, she currently rates the pain as a 3 out of 10. Past Medical History: Hypertension, hyperlipidemia, vertigo Past Surgical History: Patient had a heart cath in 2007, that was negative, no intervention at that time Social History: Denies tobacco, alcohol or illicit drug use. Family History: Reviewed and noncontributory for presenting illness Allergies: Reviewed, see documented allergy list. REVIEW OF SYSTEMS: Other than noted above, the 12 point review of systems was reviewed with the patient and were negative, all pertinent findings are included in the HPI. PHYSICAL EXAMINATION: Vital signs reviewed, nursing noted reviewed. GENERAL: Obese female, no acute distress HEAD: Atraumatic, normocephalic. EYES: Eyes appear normal, extraocular movements intact, sclera anicteric, conjunctiva are normal. ENT: nares patent, oropharynx clear without exudates. Moist mucous membranes. NECK: Normal range of motion, supple without lymphadenopathy LUNGS: Breath sounds clear to auscultation bilaterally and equal. No wheezes rales or rhonchi. HEART: Regular rate and rhythm without murmurs ABDOMEN: Soft, nontender, normoactive bowel sounds. No rebound, guarding, or rigidity. No masses appreciated. EXTREMITIES: Nontender, good range of motion, no pitting or edema. NEUROLOGICAL: No focal neurological deficits. Moves all extremities spontaneously Motor and sensory grossly intact on exam. PSYCH: Normal mood, normal affect. SKIN: Warm, Dry, normal turgor, no rashes or lesions noted on exposed skin TRAVEL OUTSIDE OF THE [place] IN LAST 30 DAYS: No - Related Data Allergies/Adverse Reactions: azithromycin [Azithromycin] Adverse Reaction (Severe, Verified 12/26/18 14:59) dizzy, chest pain citalopram hydrobromide [From Celexa] Adverse Reaction (Intermediate, Verified 12/26/18 14:59) Nausea diazepam [From Valium] Adverse Reaction (Intermediate, Verified 12/26/18 14:59) Hyperactivity, anxious Past Medical History - Social History Smoking Status: Never Smoker Chew tobacco use (# tins/day): No Frequency of alcohol use: None Drug Abuse: None Family History: Arthritis, Hyperlipidemia, Malignancy Patient has suicidal ideation: No Patient has homicidal ideation: No - Past Medical History Cardiac Medical History: Reports: Hx Coronary Artery Disease, Hx Hypercholesterolemia, Hx Hypertension Denies: Hx Heart Attack - SUPPOSE TO HAVE STRESS TEST SOMETIME SOON Pulmonary Medical History: Reports: Hx Asthma - at home inhalers and nebulizer, Hx Pneumonia Denies: Hx Bronchitis, Hx COPD, Hx Tuberculosis Neurological Medical History: Reports: Hx Cerebrovascular Accident - TIA in 2007. Denies: Hx Seizures Renal/ Medical History: Denies: Hx Peritoneal Dialysis GI Medical History: Reports: Hx Gastroesophageal Reflux Disease, Hx Colonoscopy, Hx Endoscopy. Denies: Hx Hepatitis, Hx Hiatal Hernia, Hx Ulcer Musculoskeletal Medical History: Reports Hx Arthritis, Reports Hx Fibromyalgia, Reports Hx Musculoskeletal Deformity, Reports Hx Musculoskeletal Trauma - Skull bone thumb Skin Medical History: Denies Hx MRSA Psychiatric Medical History: Reports: Hx Anxiety, Hx Depression, Hx Post Traumatic Stress Disorder Traumatic Medical History: Reports: Hx Fractures Infectious Medical History: Denies: Hx Hepatitis Past Surgical History: Reports: Hx Cardiac Catheterization, Hx Section - x4, Hx Cholecystectomy, Hx Hysterectomy, Hx Umbilical Hernia. Denies: Hx Mastectomy, Hx Open Heart Surgery, Hx Pacemaker - Immunizations Hx Diphtheria, Pertussis, Tetanus Vaccination: No Hx Pneumococcal Vaccination: 05/19/14 Physical Exam - Vital signs Vitals: Temp Pulse Resp BP Pulse Ox 98.7 F 82 20 148/70 H 96 12/26/18 13:16 12/26/18 13:16 12/26/18 13:16 12/26/18 13:16 12/26/18 13:16 Course - Re-evaluation Re-evalutation: Presentation of chest pain in an otherwise well appearing patient. Low clinical suspicion for ACS given clinical history, exam, EKG without ST elevations or depressions, and negative initial troponin. HEART score less than or equal to 3. PE also seems unlikely given clinical history, absence of tachycardia or dyspnea. Patient is PERC criteria negative. CXR without evidence of pneumothorax or pneumonia. No widened mediastinum. Aortic dissection also seems unlikely given history, symmetric pulses, CXR, and vitals. HEART Score: History 0 ECG 0 Age 1 Risk Factors 1 Troponin 0 Total: 2 Chest pain in a patient without evidence of cardiac or other serious etiology on workup today. I discussed with patient that, based on their age, risk factors and emergency department testing today, the likelihood that their symptoms are related to a heart attack is very low (estimated risk of heart attack or over the next 30 days of less than 1%). The patient demonstrates decision making capacity and has verbalized an understanding of these risks to me. Based on this, the patient has chosen to follow-up as an outpatient. Usual chest pain return precautions reviewed. The patient states understanding and agreement with this plan. Repeat troponin was negative, I did pursue this patient's neck pain, along with her vertigo, to evaluate for possible vertebral artery dissection, as a cause of her vertigo and possible syncope today, CT angiogram of the head and neck, were negative for any evidence of dissection, or concern for stenosis. Patient's EKG was not concerning as noted, the rest of her workup was unremarkable, at this point given her heart score is 2, 2- troponins, and negative CTA of the neck, I feel that the patient can be discharged to follow-up with her primary care as well as cardiology, which she was agreeable to. She was given strict return precautions and was discharged home. - Vital Signs Vital signs: Temp Pulse Resp BP Pulse Ox 98.5 F 78 18 116/69 99 12/26/18 21:01 12/26/18 21:40 12/26/18 21:40 12/26/18 21:40 12/26/18 21:40 - Laboratory Result Diagrams: 12/26/18 15:31 12/26/18 15:31 Laboratory results interpreted by me: 12/26/18 12/26/18 15:31 15:31 RDW 15.5 H Calcium 10.4 H Discharge - Discharge Clinical Impression: Dizziness Syncope Qualifiers: Syncope type: unspecified Qualified Code(s): R55 - Syncope and collapse Chest pain Qualifiers: Chest pain type: unspecified Qualified Code(s): R07.9 - Chest pain, unspecified Condition: Stable Disposition: HOME, SELF-CARE Instructions: Chest Pain of Unclear Cause ([facility]), Syncopal Episode ([facility]) Additional Instructions: Please follow-up with your primary care physician call for an appointment tomorr ow, he should follow-up with cardiology, to have some outpatient testing done, if you have recurrent episodes of passing out, please return to the emergency department immediately. Continue taking all your home medications. Referrals: KAREN ALEXANDRE PA-C [Primary Care Provider] - Follow up tomorrow
--- NOTE | 2018-12-26 18:51 | RADIOLOGY REPORT (SQ) ---
EXAM DESCRIPTION: CT HEAD WITHOUT COMPLETED DATE/TIME: 12/26/2018 6:34 pm REASON FOR STUDY: neck pain, vertigo COMPARISON: 01/06/2017 TECHNIQUE: Axial images acquired through the brain without intravenous contrast. Images reviewed wi th bone, brain and subdural windows. Images stored on PACS. All CT scanners at this facility use dose modulation, iterative reconstruction, and/or weight based d osing when appropriate to reduce radiation dose to as low as reasonably achievable (ALARA). [facility]: Dose Right [facility]: CareDose [facility]: Dose Right [facility]: Teradose 4D [facility]: VideoGenie RADIATION DOSE: mGy. LIMITATIONS: None. FINDINGS: VENTRICLES: Normal size and contour. CEREBRUM: No masses. No hemorrhage. No midline shift. No evidence for acute infarction. Normal gra y/white matter differentiation. No areas of low density in the white matter. CEREBELLUM: No masses. No hemorrhage. No alteration of density. No evidence for acute infarction. EXTRAAXIAL SPACES: No fluid collections. No masses. ORBITS AND GLOBE: No intra- or extraconal masses. Normal contour of globe without masses. CALVARIUM: No fracture. PARANASAL SINUSES: No fluid or mucosal thickening. SOFT TISSUES: No mass or hematoma. OTHER: No other significant finding. IMPRESSION: NORMAL BRAIN CT WITHOUT CONTRAST. EVIDENCE OF ACUTE STROKE: NO. COMMENT: Quality ID # [id number]: Final reports with documentation of one or more dose reduction techniques (e.g., Automated exposure control, adjustment of the mA and/or kV according to patient size, use of iterative reconstruction technique) TECHNICAL DOCUMENTATION: JOB ID: [id number] [employer]- All Rights Reserved Reading location - IP/workstation name: [email or web address]
--- NOTE | 2018-12-26 18:56 | EKG REPORT ---
SEVERITY:- ABNORMAL ECG - SINUS RHYTHM LEFT AXIS DEVIATION , LAFB LEFT VENTRICULAR HYPERTROPHY : Confirmed by: Mahad Tipton MD 26-Dec-2018 18:54:56
--- NOTE | 2018-12-26 19:18 | RADIOLOGY REPORT (SQ) ---
EXAM DESCRIPTION: CTA NECK COMPLETED DATE/TIME: 12/26/2018 6:32 pm REASON FOR STUDY: neck pain, vertigo COMPARISON: 09/03/2013 TECHNIQUE: Axial dynamic scanning technique with dynamic contrast enhancement through the extra-cracking and fanning machine operator nial carotid and vertebral arteries. Multiplanar reconstruction. 3-D MIPS and Volume-rendered imag es acquired at the workstation and saved to PACS. Images are reviewed in soft tissue, bone, lung w indows. All CT scanners at this facility use dose modulation, iterative reconstruction, and/or weight based d osing when appropriate to reduce radiation dose to as low as reasonably achievable (ALARA). [facility]: Dose Right [facility]: CareDose [facility]: Dose Right [facility]: Teradose 4D [facility]: [employer] CONTRAST TYPE AND DOSE: contrast/concentration: Isovue 350.00 mg/ml; Total Contrast Delivered: 70.0 ml; Total Saline Delivered: 75.0 ml RENAL FUNCTION: BUN 5 creatinine 0.6 LIMITATIONS: None. FINDINGS: AORTIC ARCH: Normal three-vessel origin. Bilateral subclavian arteries are patent. No d issection. RIGHT CAROTIDS: Patent common, internal and external carotid arteries without suggestion of significa nt stenosis or irregular plaque. No dissection. Tortuous ICA. RIGHT VERTEBRAL: Patent. No dissection. LEFT CAROTIDS: Patent common, internal and external carotid arteries without suggestion of significan t stenosis or irregular plaque. No dissection. Tortuous ICA. LEFT VERTEBRAL: Patent. No dissection. OTHER: No other significant finding. OTHER: 3-D reconstructions confirm findings. IMPRESSION: No significant stenoses. No dissection. Internal carotid arteries are tortuous. COMMENT: Quality ID #[id number]: Measurements of distal internal carotid diameter were used as the denomina tor for stenosis measurement. TECHNICAL DOCUMENTATION: JOB ID: [id number] Quality ID # [id number]: Final reports with documentation of one or more dose reduction techniques (e.g., Au tomated exposure control, adjustment of the mA and/or kV according to patient size, use of iterative reconstruction technique) 2010 [employer]- All Rights Reserved Reading location - IP/workstation name: [email or web address]
--- NOTE | 2018-12-26 19:22 | RADIOLOGY REPORT (SQ) ---
EXAM DESCRIPTION: CTA HEAD COMPLETED DATE/TIME: 12/26/2018 6:32 pm REASON FOR STUDY: neck pain, vertigo COMPARISON: 12/26/2018 TECHNIQUE: Post IV contrast scanning, thin section axial imaging through the brain to evaluate the a rterial structures. Source and MIP images are saved and reviewed on PACS. Advanced 3D imaging as volume-rendering, MIPs, SSD performed? yes All CT scanners at this facility use dose modulation, iterative reconstruction, and/or weight based d osing when appropriate to reduce radiation dose to as low as reasonably achievable (ALARA). [facility]: Dose Right [facility]: CareDose [facility]: Dose Right [facility]: Teradose 4D [facility]: [employer] CONTRAST TYPE AND DOSE: 70 mL Omnipaque 350- low osmolar. RENAL FUNCTION: BUN 5 creatinine 0.6 LIMITATIONS: None. FINDINGS: [place]: The anterior, middle, posterior cerebral arteries are all patent. No ev idence of aneurysm or focal stenosis. POSTERIOR CIRCULATION: The distal vertebral arteries are patent as is the basilar artery. No aneurysm . BRAIN: No gross enhancing lesions as visualized. The superior cerebral hemispheres are not included in the field of view. BONES: Intact as visualized. SINUSES: No fluid or mucosal thickening. OTHER: No other significant finding. IMPRESSION: NO CTA EVIDENCE OF STENOSIS OR ANEURYSM OF THE [place]. TECHNICAL DOCUMENTATION: JOB ID: [id number] Quality ID # [id number]: Final reports with documentation of one or more dose reduction techniques (e.g., Au tomated exposure control, adjustment of the mA and/or kV according to patient size, use of iterative reconstruction technique) 2010 [employer]- All Rights Reserved Reading location - IP/workstation name: [email or web address]
[2018-12-26 21:40] VITALS: BP 116/69
== END 2018-12-26 21:40 | disposition home or self-care (01) ==
LOC: ER 12:52
DX: R07.9 Chest pain, unspecified (principal); I10 Essential (primary) hypertension; R42 Dizziness and giddiness; R55 Syncope and collapse; I25.10 Atherosclerotic heart disease of native coronary artery without angina pectoris; Z88.3 Allergy status to other anti-infective agents; Z86.73 Personal history of transient ischemic attack (TIA), and cerebral infarction without residual deficits; Z90.49 Acquired absence of other specified parts of digestive tract; Z90.710 Acquired absence of both cervix and uterus
CPT/HCPCS: 93005; 99284; 36415; 82553; 82550; 85025; 80053; 84484; 71046; 70450; 70496; 70498; 93010; A9270

== ENCOUNTER → 2018-12-31 | Outpatient (CLI) | payer MEDICARE, MEDICAID ==
--- NOTE | 2018-12-31 14:19 | WOMENS IMAGING REPORT ---
EXAM DESCRIPTION: 3D SCREENING MAMMO BILAT COMPLETED DATE/TIME: 12/31/2018 9:26 am REASON FOR STUDY: ROUTINE BILATERAL SCREENING;Z12.31 Z12.31 ENCNTR SCREEN MAMMOGRAM FOR MALIGNANT N EOPLASM OF XAVIER COMPARISON: 2014 to 2017 TECHNIQUE: Standard craniocaudal and mediolateral oblique views of each breast recorded using digita l acquisition and breast tomosynthesis. LIMITATIONS: None. FINDINGS: No masses, calcifications or architectural distortion. No areas of suspicion. Read with the assistance of CAD. .[facility] - R2 [employer] Version 1.3 .[facility] Imaging - R2 Cenova Version 2.1 .[facility] - R2 Cenova Version 2.4 .[facility] - R2 Cenova Version 2.4 .[facility] - R2 [employer] Ar[employer] Manager Version 9.2 IMPRESSION: NORMAL MAMMOGRAM. BIRADS 1. BREAST DENSITY: b. There are scattered areas of fibroglandular density. BIRAD: 1 NEGATIVE RECOMMENDATION: ROUTINE SCREENING COMMENT: The patient has been notified of the results by letter per [place] requirements. Additional no tification policies are in place for contacting patient with suspicious or incomplete findings. Quality ID #225: The [employer] recommends an annual screening mammogram for women aged 40 years or over. This facility utilizes a reminder system to ensure that all patients receive reminder letters, and/or direct phone calls for appointments. This includes reminders for routine scr eening mammograms, diagnostic mammograms, or other Breast Imaging Interventions when appropriate. Th is patient will be placed in the appropriate reminder system. The [employer] (ACR) has developed recommendations for screening MRI of the breast s in certain patient populations, to be used in conjunction with mammography. Breast MRI surveillanc e may be appropriate for women with more than 20% lifetime risk of developing breast cancer as deter mined by genetic testing, significant family history of the disease, or history of mantle radiation f or Hodgkins Disease. ACR Practice Guidelines 2008. DBT Technology DBT is a type of tomographic mammography. With conventional mammography, overlapping breast tissue ma y make lesions difficult to detect, even with good compression. DBT uses an x-ray tube that rotates a round the breast, taking images at different angles. These images are then combined to create thin sl ices of the breast that the radiologist can view as a 3D reconstruction. The [employer] unit can perform full-field digital mammograms (2D imaging); or DBT (3D imaging); or both, in a combination mode that quickly performs both the mammogram and the tomosynthesis scan while the breast is still compressed. PQRS 6045F: Fluoroscopic imaging is not utilized for breast tomosynthesis. TECHNICAL DOCUMENTATION: FINDING NUMBER: (1) ASSESSMENT: (1) JOB ID: [id number] [employer]- All Rights Reserved Reading location - IP/workstation name: [email or web address]
== END ==
LOC: WI 09:00
PROVIDERS: ATTEND Physician Assistant
DX: Z12.31 Encounter for screening mammogram for malignant neoplasm of breast (principal)
CPT/HCPCS: 77063; 77067

== ENCOUNTER → 2020-04-02 | Outpatient (CLI) | payer MEDICARE, MEDICAID ==
--- NOTE | 2020-04-02 11:04 | WOMENS IMAGING REPORT ---
EXAM DESCRIPTION: BONE DENSITY HIP/SPINE IMAGES COMPLETED DATE/TIME: 04/02/2020 10:24 am REASON FOR STUDY: M81.0 AGE-RELATED OSTEOPOROSIS WITHOUT CURRENT PATHOLOGICAL FRACTURE Z12.31 ENCNT R SCREEN MAMMOGRAM FOR MALIGNANT NEOPLASM OF XAVIER M81.0 AGE-RELATED OSTEOPOROSIS W/O CURRENT PATHOLOG ICAL FRAC COMPARISON: None. TECHNIQUE: Dual-Energy X-ray Absorptiometry (DEXA) of the AP Spine and Hip. LIMITATIONS: None. FINDINGS: LUMBAR SPINE: The bone mineral density (BMD) measured from L1-L4 in the AP projection correlates with a T-score of 2, which is normal as defined by the World Health Organization. BMD Change vs Baseline: N/A HIP: The bone mineral density (BMD) measured in the left femoral neck correlates with a T-score of 0, whic h is normal as defined by the World Health Organization. BMD Change vs Baseline: N/A 10 year Fracture Risk Assessment: Major Osteoporotic Fracture: None reported as all T-scores are at or above -1. Hip Fracture: None reported as all T-scores are at or above -1. IMPRESSION: 1. LUMBAR SPINE WHO CLASSIFICATION: NORMAL. 2. HIP WHO CLASSIFICATION: NORMAL. OVERALL ASSESSMENT: WHO CLASSIFICATION: NORMAL. COMMENT: The World Health Organization defines low BMD as follows: T-score: Normal: At or above -1.0 Osteopenia: Between -1.0 and -2.5 Osteoporosis: At or below -2.5 without fractures Established osteoporosis: At or below -2.5 with fractures In general, you may wish to consider: Diagnosis Treatment Follow-up DEXA Normal BMD Prevention 2-3 years Osteopenia Prevention/Therapy 1-2 years Osteoporosis Therapy Yearly TECHNICAL DOCUMENTATION: JOB ID: [id number] 2010 [employer]- All Rights Reserved Reading location - IP/workstation name: [email or web address]
--- NOTE | 2020-04-02 12:05 | WOMENS IMAGING REPORT ---
EXAM DESCRIPTION: 3D SCREENING MAMMO BILAT IMAGES COMPLETED DATE/TIME: 04/02/2020 10:24 am REASON FOR STUDY: Z12.31 ENCOUNTER FOR SCREENING MAMMOGRAM FOR MALIGNANT NEOPLASM OF BREAST Z12.31 ENCNTR SCREEN MAMMOGRAM FOR MALIGNANT NEOPLASM OF XAVIER M81.0 AGE-RELATED OSTEOPOROSIS W/O CURRENT PAT HOLOGICAL FRAC COMPARISON: 12/31/2018, 12/27/2017, 12/15/2016 EXAM PARAMETERS: Views: Standard craniocaudal and mediolateral oblique views of each breast recorded using digital acquisition and breast tomosynthesis. Read with the assistance of CAD. .[facility] [place] - [employer] Version 2.4 LIMITATIONS: None. FINDINGS: No suspicious masses, suspicious calcifications or architectural distortion. No areas of c oncern. IMPRESSION: NEGATIVE MAMMOGRAM. BIRADS 1. BREAST DENSITY: a. The breasts are almost entirely fatty. BIRAD: ASSESSMENT: 1 NEGATIVE RECOMMENDATION: ROUTINE SCREENING COMMENT: The patient has been notified of the results by letter per MQSA requirements. Additional no tification policies are in place for contacting patient with suspicious or incomplete findings. Quality ID #225: The [employer] recommends an annual screening mammogram for women aged 40 years or over. This facility utilizes a reminder system to ensure that all patients receive reminder letters, and/or direct phone calls for appointments. This includes reminders for routine scr eening mammograms, diagnostic mammograms, or other Breast Imaging Interventions when appropriate. Th is patient will be placed in the appropriate reminder system. TECHNICAL DOCUMENTATION: FINDING NUMBER: (1) ASSESSMENT: (1) JOB ID: [id number] 2010 [employer]- All Rights Reserved Reading location - IP/workstation name: [email or web address]
== END ==
LOC: WI 09:46
PROVIDERS: ATTEND Physician Assistant
DX: Z12.31 Encounter for screening mammogram for malignant neoplasm of breast (principal); M81.0 Age-related osteoporosis without current pathological fracture
CPT/HCPCS: 77063; 77067; 77080

== ENCOUNTER → 2020-06-15 | Outpatient (CLI) | payer MEDICARE, MEDICAID ==
--- NOTE | 2020-06-15 10:19 | RADIOLOGY REPORT (SQ) ---
EXAM DESCRIPTION: SHOULDER BILAT 2 OR MORE VIEWS IMAGES COMPLETED DATE/TIME: 06/15/2020 9:37 am REASON FOR STUDY: CHRONIC VINAY SHOULDER PAIN COMPARISON: None. NUMBER OF VIEWS: Three views. TECHNIQUE: Internal rotation, external rotation, and Y view images acquired of the right and left sh oulder. LIMITATIONS: None. FINDINGS: MINERALIZATION: Normal. BONES: No acute fracture. No worrisome bone lesions. Bilateral osteophytes on the humeral heads. GLENOHUMERAL JOINT: Bilateral osteophytes. ACROMIOCLAVICULAR JOINT: No large osteophytes. SOFT TISSUES: No calcifications. VISUALIZED RIBS, SPINE, AND LUNG: No other significant finding. OTHER: No other significant finding. IMPRESSION: DEGENERATIVE CHANGES WITH BILATERAL OSTEOPHYTES ON THE HUMERAL HEADS. NO ACUTE FINDINGS . TECHNICAL DOCUMENTATION: JOB ID: [id number] 2010 [employer]- All Rights Reserved Reading location - IP/workstation name: [email or web address]
== END ==
LOC: OD 09:14
PROVIDERS: ATTEND Physician Assistant
DX: M25.512 Pain in left shoulder (principal); M25.511 Pain in right shoulder